=== PATIENT | male | born 1995 | race Caucasian/White ===

== ENCOUNTER 2023-03-17 14:24 | Emergency (ER) | payer BC ==
[~2023-03-17] VITALS: Ht 188 cm; Wt 74.5 kg
[2023-03-17 14:27] VITALS: TEMP 99
[2023-03-17] MEDS ORDERED: ONDANSETRON HCL 4 MG/2 ML VIAL IVP ONE (14:45)
[2023-03-17 14:53] LABS: BASOPHILS % (AUTO) 0.4 % (0.0-2.0); EOSINOPHILS % (AUTO) 1.8 % (1.0-6.0); HEMATOCRIT 42.1 % (41-53); HEMOGLOBIN 14.1 g/dL (13.5-17.5); LYMPHOCYTES # (AUTO) 3.8 K/uL (1.0-4.8); LYMPHOCYTES % (AUTO) 41.5 % (22.0-44.0); MEAN CORPUSCULAR HGB CONC 33.5 G/dL (31.0-37.0); MEAN CORPUSCULAR VOLUME 90 fL (80-100); MONOCYTES # (AUTO) 0.8 K/uL (0.1-1.0); NEUTROPHILS # (AUTO) 4.3 K/uL (1.8-7.7); NEUTROPHILS % (AUTO) 47.3 % (40.0-70.0); PLATELET COUNT (AUTO) 316 K/uL (150-450); RED BLOOD CELL COUNT(AUTO) 4.71 MIL/uL (4.50-5.90); RED CELL DISTRIBUTION WIDTH 13.2 % (11.5-14.5); WHITE BLOOD COUNT (AUTO) 9.1 K/uL (4.5-11.0)
[2023-03-17 15:11] LABS: TROPONIN I-HIGH SENSITIVITY 4 ng/L (<76)
[2023-03-17 15:27] LABS: ANION GAP 12 mmol/L (8-16); B-TYPE NATRIURETIC PEPTIDE 8 pg/mL (0-100); CALCIUM, TOTAL 9.4 mg/dL (8.8-10.5); CARBON DIOXIDE 26 mmol/L (22-29); CHLORIDE 100 mmol/L (98-107); CREATININE 0.89 mg/dL (0.60-1.30); GLOMERULAR FILTR. RATE CALC > 60 mL/min (>60); GLUCOSE,RANDOM 98 mg/dL (70-110); POTASSIUM 3.5 mmol/L (3.5-5.1); SODIUM SERUM 138 mmol/L (136-145); UREA NITROGEN, BLOOD 14 mg/dL (7-18)
[2023-03-17 15:52] LABS: ALANINE AMINOTRANSFERASE 48 U/L (12-78); ALBUMIN 4.4 g/dL (3.4-5.0); ALKALINE PHOSPHATASE 58 U/L (46-116); ASPARTATE AMINOTRANSFERASE 31 U/L (15-37); BILIRUBIN,TOTAL 0.3 mg/dL (0.1-1.0); CREATINE KINASE, TOTAL ONLY 229 U/L (39-308); TOTAL PROTEIN, SERUM 8.3 g/dL (6.4-8.2)
[2023-03-17 16:48] LABS: TROPONIN I-HIGH SENSITIVITY 5 ng/L (<76)
[2023-03-17 16:57] VITALS: BP 126/85; PULSE 60; RESP 18
== END 2023-03-17 17:32 | disposition home or self-care (01) ==
LOC: EMS 14:25
DX: R07.89 Other chest pain (principal); R05.9 Cough, unspecified
CPT/HCPCS: 99285; 96374; 71045; 80053; 82550; 83880; 84484; 85025; 85379; 36415; 93005; J2405